=== PATIENT | male | born 1980 | race Native Hawaiian/Other Pacific Islander ===

== ENCOUNTER 2018-12-20 07:39 | Emergency (ER) | payer OTHER ==
[2018-12-20 08:10] LABS: Basophils # (Auto) 0.1 K/mm3 (0.0-0.1); Basophils % (Auto) 0.4 % (0.0-1.8); Eosinophils # (Auto) 0.1 K/mm3 (0.0-0.4); Eosinophils % (Auto) 0.4 % (0.0-4.3); Hematocrit 46.2 % (35.5-45.6); Hemoglobin 15.5 gm/dl (11.8-15.2); Lymphocytes # (Auto) 1.5 K/mm3 (1.2-5.4); Lymphocytes % (Auto) 8.8 % (13.4-35.0); Mean Corpuscular HGB Conc 34 % (32-34); Mean Corpuscular Volume 89 fl (84-94); Monocytes # (Auto) 1.2 K/mm3 (0.0-0.8); Monocytes % (Auto) 7.4 % (0.0-7.3); Platelet Count 299 K/mm3 (140-440); Red Blood Count 5.21 M/mm3 (3.65-5.03); Red Cell Distribution Width 13.8 % (13.2-15.2)
[2018-12-20] MEDS ORDERED: SODIUM CHLORIDE 0.9% 1000 ML 1,000 ML IV ONE ×2 (08:13→10:46)
[2018-12-20] MEDS ORDERED: ONDANSETRON 4 MG/2 ML INJ IV ONE (08:14)
--- NOTE | 2018-12-20 08:16 | Emergency Department Report ---
ED Abdominal Pain HPI - General Chief Complaint: Abdominal Pain Stated Complaint: NAUSEA/VOMITING Time Seen by Provider: 12/20/18 08:13 Source: patient Mode of arrival: Ambulatory Limitations: No Limitations - History of Present Illness Initial Comments: 38 YO MALE PRESENTS TO ER WITH ABD PAIN. DESCRIBED DIFFUSE ASSOCIATED WITH VOMITING. TENDER ON EXAM- DIFFUSELY. NO FEVER. NO CHILLS. 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 DENIES BACK PAIN, HEMATURIA OR DIFFICULTY URINATING MD Complaint: abdominal pain -: Sudden Location: RUQ Migration to: no migration Improves With: nothing Worsens With: nothing Associated Symptoms: nausea - Related Data Previous Rx's Medication Instructions Recorded Last Taken Type Ciprofloxacin HCl [Ciprofloxacin 500 mg PO Q12HR #20 tab 12/20/18 Unknown Rx TAB] Ibuprofen [Motrin] 800 mg PO Q8HR PRN #30 tablet 12/20/18 Unknown Rx Ondansetron [Zofran Odt] 4 mg PO Q8HR PRN #10 tab.rapdis 12/20/18 Unknown Rx Tamsulosin [Flomax] 0.4 mg PO QDAY #10 cap 12/20/18 Unknown Rx Allergies Allergy/AdvReac Type Severity Reaction Status Date / Time No Known Allergies Allergy Verified 01/22/16 13:29 ED Review of Systems ROS: Stated complaint: NAUSEA/VOMITING Other details as noted in HPI Comment: All other systems reviewed and negative ED Past Medical Hx - Past Medical History Previous Medical History?: Yes Hx Hypertension: Yes Hx CVA: No Hx Heart Attack/AMI: No Hx Congestive Heart Failure: No Hx Diabetes: No Hx Deep Vein Thrombosis: No Hx Pulmonary Embolism: No Hx GERD: No Hx Liver Disease: No Hx Renal Disease: No Hx of Cancer: No Hx Sickle Cell Disease: No Hx Arthritis: No Hx Headaches / Migraines: No Hx Seizures: No Hx Kidney Stones: Yes Hx Psychiatric Treatment: No Hx Asthma: No Hx COPD: No Hx Tuberculosis: No Hx Dementia: No Hx HIV: No - Surgical History Past Surgical History?: Yes Additional Surgical History: RIGHT EYE - Family History Family history: no significant - Social History Smoking Status: Never Smoker Substance Use Type: None - Medications Home Medications: Home Medications Medication Instructions Recorded Confirmed Last Taken Type Ciprofloxacin HCl [Ciprofloxacin 500 mg PO Q12HR #20 tab 12/20/18 Unknown Rx TAB] Ibuprofen [Motrin] 800 mg PO Q8HR PRN #30 tablet 12/20/18 Unknown Rx Ondansetron [Zofran Odt] 4 mg PO Q8HR PRN #10 tab.rapdis 12/20/18 Unknown Rx Tamsulosin [Flomax] 0.4 mg PO QDAY #10 cap 12/20/18 Unknown Rx ED Physical Exam - General Limitations: No Limitations General appearance: alert, in no apparent distress - Head Head exam: Present: atraumatic, normocephalic - Eye Eye exam: Present: normal appearance - ENT ENT exam: Present: mucous membranes moist - Neck Neck exam: Present: normal inspection - Respiratory Respiratory exam: Present: normal lung sounds bilaterally. Absent: respiratory distress - Cardiovascular Cardiovascular Exam: Present: regular rate, normal rhythm. Absent: systolic murmur, diastolic murmur, rubs, gallop - GI/Abdominal GI/Abdominal exam: Present: soft, tenderness, normal bowel sounds - Rectal Rectal exam: Present: deferred - Extremities Exam Extremities exam: Present: normal inspection - Back Exam Back exam: Present: normal inspection - Neurological Exam Neurological exam: Present: alert, oriented X3 - Psychiatric Psychiatric exam: Present: normal affect, normal mood - Skin Skin exam: Present: warm, dry, intact, normal color. Absent: rash ED Course Vital Signs 12/20/18 12/20/18 12/20/18 07:46 08:48 08:49 Temperature 98.6 F 98.4 F Pulse Rate 80 Respiratory 18 18 Rate Blood Pressure 180/93 O2 Sat by Pulse 100 97 100 Oximetry 12/20/18 12/20/18 12/20/18 09:00 09:16 09:30 Temperature Pulse Rate Respiratory Rate Blood Pressure 135/93 135/93 127/90 O2 Sat by Pulse 95 96 97 Oximetry 12/20/18 09:46 Temperature Pulse Rate Respiratory Rate Blood Pressure 127/90 O2 Sat by Pulse 97 Oximetry - Reevaluation(s) Reevaluation #1: 12/20/18 11:36 ON REEXAM PT REPORTS DEC IN PAIN AND IS ON PHONE TALKING VSS ED Medical Decision Making - Lab Data Result diagrams: 12/20/18 07:55 12/20/18 07:55 - Radiology Data Radiology results: report reviewed, image reviewed - Medical Decision Making Labs 12/20/18 12/20/18 12/20/18 07:55 07:55 08:47 WBC 16.6 H RBC 5.21 H Hgb 15.5 H Hct 46.2 H MCV 89 MCH 30 MCHC 34 RDW 13.8 Plt Count 299 Lymph % (Auto) 8.8 L [place] % (Auto) 7.4 H Eos % (Auto) 0.4 Baso % (Auto) 0.4 Lymph # 1.5 [place] # 1.2 H Eos # 0.1 Baso # 0.1 Seg Neutrophils % 83.0 H Seg Neutrophils # 13.7 H Sodium 140 Potassium 4.0 Chloride 101.5 Carbon Dioxide 21 L Anion Gap 22 BUN 10 Creatinine 1.0 Estimated GFR > 60 BUN/Creatinine Ratio 10 Glucose 105 H Calcium 9.3 Total Bilirubin 0.30 AST 19 ALT 16 Alkaline Phosphatase 77 Total Protein 8.0 Albumin 4.4 Albumin/Globulin Ratio 1.2 Lipase 75 H Urine Color [place] Urine Turbidity Slightly-cloudy Urine pH 5.0 Ur Specific [place] 1.033 H Urine Protein 100 mg/dl Urine Glucose (UA) Neg Urine Ketones Tr Urine Blood Neg Urine Nitrite Neg Urine Bilirubin Neg Urine Urobilinogen 2.0 Ur Leukocyte Esterase Neg Urine WBC (Auto) 4.0 Urine RBC (Auto) 13.0 U Epithel Cells (Auto) 3.0 Urine Bacteria (Auto) 1+ Calcium Oxalate Crystal 1+ Urine Mucus 3+ Vital Signs 12/20/18 12/20/18 12/20/18 07:46 08:48 08:49 Temperature 98.6 F 98.4 F Pulse Rate 80 Respiratory 18 18 Rate Blood Pressure 180/93 O2 Sat by Pulse 100 97 100 Oximetry 12/20/18 12/20/18 12/20/18 09:00 09:16 09:30 Temperature Pulse Rate Respiratory Rate Blood Pressure 135/93 135/93 127/90 O2 Sat by Pulse 95 96 97 Oximetry 12/20/18 09:46 Temperature Pulse Rate Respiratory Rate Blood Pressure 127/90 O2 Sat by Pulse 97 Oximetry LABS NOTED UA NOTED CT NOTED NS 2L MEDICATED FOR PAIN AND NAUSEA ROCEPHIN IV PT EDUCATED ON KIDNEY STONE AND PLAN OF CARE HYDRO IS NO LONGER SEEN. WBC INC BUT UA WITHOUT LEUK/NITRATES. UA WITH 4WBC. PT VERBALIZES UNDERSTANDING OF NEED TO FOLLOW UP WITH URO. WILL DC HOME WITH RX/STRAINER AND REFERRAL TO [facility]. - Differential Diagnosis RO PANCREATITIS/CHOLEY/GASTRITIS/K STONE Critical care attestation.: If time is entered above; I have spent that time in minutes in the direct care of this critically ill patient, excluding procedure time. ED Disposition Clinical Impression: Kidney stone on right side Disposition: DC- TO HOME OR SELFCARE Is pt being admited?: No Does the pt Need Aspirin: No Condition: Stable Instructions: Kidney Stones (ED) Additional Instructions: MEDS ORDERED TODAY FOLLOW UP WITH DR MATA OR UROLOGY MD RAYMONDP YOU HAVE THE SAME PROBLEMATIC STONE BEFORE AND NEED OUTPATIENT TREATMENT DIET AND ACTIVITY TOLERATED HYDRATE WITH A LOT OF WATER STRAIN URINE PCP REFERRAL ALSO GIVEN BELOW Prescriptions: Ciprofloxacin HCl [Ciprofloxacin TAB] 500 mg PO Q12HR #20 tab Tamsulosin [Flomax] 0.4 mg PO QDAY #10 cap Ibuprofen [Motrin] 800 mg PO Q8HR PRN #30 tablet PRN Reason: Pain, Moderate (4-6) Ondansetron [Zofran Odt] 4 mg PO Q8HR PRN #10 tab.rapdis PRN Reason: Vomiting Referrals: FINA MATA MD [Staff Physician] - 3-5 Days Time of Disposition: 11:23
[2018-12-20] MEDS ORDERED: ALUM-MAG HYDROXIDE-SIMETHICONE 200-200-20MG/5ML ORAL LIQD 30 ML PO ONE (08:25)
[2018-12-20] MEDS ORDERED: FAMOTIDINE 20 MG TAB PO ONE (08:25)
[2018-12-20 08:32] LABS: Alanine Aminotransferase 16 units/L (7-56); Albumin 4.4 g/dL (3.9-5); BUN/Creatinine Ratio 10; Blood Urea Nitrogen 10 mg/dL (9-20); Calcium 9.3 mg/dL (8.4-10.2); Hemolysis Index 6
[2018-12-20 09:21] LABS: Bacteria,Urine 1+ /HPF (Negative); Bilirubin,Urine NEG (Negative); Blood,Urine NEG (Negative); Calcium Oxalate Crystals,Urine 1+; Color,Urine Amber (Yellow); Mucus,Urine 3+ /HPF
--- NOTE | 2018-12-20 10:35 | Cat Scan Report ---
CT ABDOMEN AND PELVIS WITHOUT CONTRAST HISTORY: Abdominal pain COMPARISON: 12/09/2017 TECHNIQUE: Axial CT images were obtained through the abdomen and pelvis without IV contrast. Sagittal and coronal reformatted images. All CT scans at this location are performed using CT dose reduction for ALARA by means of automated exposure control. FINDINGS: CT ABDOMEN: Lung Bases: Clear. Liver: No significant abnormality. Biliary: No significant abnormality. Spleen: No significant abnormality. Unenlarged. Pancreas: No significant abnormality. Adrenals: No significant abnormality. Kidneys: The left kidney and collecting system are unremarkable. 2.6 cm cyst with focal wall calcific ation in the mid right kidney is unchanged. Right hydronephrosis has resolved since the previous exam . There is a persistent 7 mm calcification in the vicinity of the distal right ureter which is unchan ged. It is unclear if this represents a nonobstructing stone or a pelvic phlebolith. When comparing t o the previous study, this appears to represent the same distal right ureteral stone. Lymphatics: No lymphadenopathy. Vasculature: No significant abnormality. Bowel/Peritoneum: No significant abnormality. No free air. No free fluid. The appendix is slightly pr ominent and located medial to the cecum measuring 8.6 mm. There are no convincing inflammatory change s. Gas is identified within the appendix. CT PELVIS: : No significant abnormality. Osseous Structures: No significant abnormality. Additional Findings: None IMPRESSION: 7 mm calcification in the right pelvis as described. This appears to represent the same distal right ureteral stone noted on the previous examination. Right hydronephrosis has resolved. Please correlate with the patient. Slightly prominent appendix but no acute inflammatory changes. Signer Name: Tommie Siddiqi Jr, MD Signed: 12/20/2018 10:31 AM Workstation Name: [id number]
[2018-12-20] MEDS ORDERED: MORPHINE 2 MG/1 ML INJ IV ONE (10:46)
[2018-12-20] MEDS ORDERED: cefTRIAXone/NS 1 GM/50 ML 1 GM/50 ML BAG IV ONE (11:09)
[2018-12-20] MEDS ORDERED: KETOROLAC 30 MG/1 ML INJ IV ONE (11:23)
[2018-12-20 13:16] VITALS: BP 142/80
== END 2018-12-20 13:28 | disposition home or self-care (01) ==
LOC: ED 07:39
DX: N20.0 Calculus of kidney (principal); R11.2 Nausea with vomiting, unspecified; I10 Essential (primary) hypertension; Z79.1 Long term (current) use of non-steroidal anti-inflammatories (NSAID); Z79.899 Other long term (current) drug therapy
CPT/HCPCS: 36415; 74176; 80053; 81001; 83690; 85025; 87086; 96361; 96365; 96375; 99284; J0696; J1885; J2270; J2405; J7030

== ENCOUNTER 2018-12-23 16:38 | Emergency (ER) | payer OTHER | END 2018-12-23 18:00 | disposition left against medical advice (07) | LOC: ED 16:38 | DX: R51 Headache (principal); Z53.21 Procedure and treatment not carried out due to patient leaving prior to being seen by health care provider ==

== ENCOUNTER 2019-02-23 10:41 | Emergency (ER) | payer SELFPAY ==
[2019-02-23 11:56] LABS: Bilirubin,Urine NEG (Negative); Blood,Urine NEG (Negative); Color,Urine Yellow (Yellow); Mucus,Urine FEW /HPF; Protein,Urine <15 mg/dL mg/dL (Negative); Urobilinogen,Urine < 2.0 mg/dL (<2.0)
[2019-02-23 12:36] LABS: Basophils # (Auto) 0.1 K/mm3 (0.0-0.1); Basophils % (Auto) 0.4 % (0.0-1.8); Hematocrit 43.3 % (35.5-45.6); Hemoglobin 14.6 gm/dl (11.8-15.2); Lymphocytes # (Auto) 1.3 K/mm3 (1.2-5.4); Lymphocytes % (Auto) 10.4 % (13.4-35.0); Mean Corpuscular HGB Conc 34 % (32-34); Mean Corpuscular Volume 88 fl (84-94); Monocytes # (Auto) 1.1 K/mm3 (0.0-0.8); Platelet Count 291 K/mm3 (140-440); Red Blood Count 4.93 M/mm3 (3.65-5.03); Red Cell Distribution Width 13.7 % (13.2-15.2)
[2019-02-23 12:51] LABS: Albumin 4.1 g/dL (3.9-5); Calcium 8.9 mg/dL (8.4-10.2)
[2019-02-23] MEDS ORDERED: KETOROLAC 30 MG/1 ML INJ IV ONE (12:51)
[2019-02-23] MEDS ORDERED: ONDANSETRON 4 MG/2 ML INJ IV ONE (12:51)
[2019-02-23] MEDS ORDERED: SODIUM CHLORIDE 0.9% 1000 ML 1,000 ML IV ONE (12:51)
--- NOTE | 2019-02-23 14:08 | Cat Scan Report ---
CT ABDOMEN AND PELVIS WITHOUT CONTRAST INDICATION / CLINICAL INFORMATION: right flank pain. TECHNIQUE: Axial CT images were obtained through the abdomen and pelvis without IV contrast. All CT scans at [facility] location are performed using CT dose reduction for ALARA by means of automated exposure control. COMPARISON: CT dated 12/20/18 FINDINGS: LOWER CHEST: No significant abnormality. LIVER: No significant abnormality. GALLBLADDER: No significant abnormality. BILE DUCTS: No significant abnormality. PANCREAS: No significant abnormality. SPLEEN: No significant abnormality. ADRENALS: No significant abnormality. RIGHT KIDNEY and URETER: 5.5 mm stone at the right ureterovesical junction protruding slightly into t he urinary bladder. Moderate right hydroureteronephrosis. Moderate perinephric and periureteral stran ding. Right renal cyst is unchanged. LEFT KIDNEY and URETER: No stones or hydronephrosis. No acute findings. STOMACH and SMALL BOWEL: No significant abnormality. COLON: No significant abnormality. APPENDIX: No significant abnormality. PERITONEUM: No free fluid. No free air. No fluid collection. LYMPH NODES: No significant adenopathy. AORTA and ARTERIES: No significant abnormality. IVC and VEINS: No significant abnormality. URINARY BLADDER: Mild bladder wall thickening. REPRODUCTIVE ORGANS: No significant abnormality. ADDITIONAL FINDINGS: None. SKELETAL SYSTEM: No significant abnormality. IMPRESSION: 1. 5.5 mm stone at the right ureterovesical junction with moderate right hydroureteronephrosis. Signer Name: Adán Boyce MD Signed: 02/23/2019 2:04 PM Workstation Name: [id number]
--- NOTE | 2019-02-23 14:23 | Emergency Department Report ---
ED Abdominal Pain HPI - General Chief Complaint: Abdominal Pain Stated Complaint: POSSIBLE KIDNEY STONES Source: patient Mode of arrival: Ambulatory Limitations: No Limitations - History of Present Illness Initial Comments: This is a 38-year-old male came to the emergency room complaining of right flank pain associated with nausea sometimes vomiting. Patient's the onset of this right flank pain with 11 hours ago he reports a history of kidney stones and that he was. Follow-up with urologist but has not he was last seen in this emergency room on 12/20/2018. Patient denies fever he does report decreased appetite he. He denies any difficulty urinating. Patient denies chest pain and shortness of breath MD Complaint: flank pain -: Gradual (12 hrs ago), Sudden Location: R flank Radiation: RUQ Severity: moderate Severity scale (0 -10): 4 Quality: aching Consistency: intermittent Improves With: nothing Worsens With: nothing Associated Symptoms: nausea. denies: diarrhea, fever, constipation, dysuria - Related Data Previous Rx's Medication Instructions Recorded Last Taken Type Ciprofloxacin HCl [Ciprofloxacin 500 mg PO Q12HR #20 tab 12/20/18 Unknown Rx TAB] Ibuprofen [Motrin] 800 mg PO Q8HR PRN #30 tablet 12/20/18 Unknown Rx Ondansetron [Zofran Odt] 4 mg PO Q8HR PRN #10 tab.rapdis 12/20/18 Unknown Rx Tamsulosin [Flomax] 0.4 mg PO QDAY #10 cap 12/20/18 Unknown Rx HYDROcodone/APAP 5-325 [[place] 1 each PO Q6HR PRN #15 tablet 02/23/19 Unknown Rx 5/325] Ondansetron [Zofran ODT TAB] 8 mg PO Q12HR PRN #8 tab.rapdis 02/23/19 Unknown Rx Tamsulosin [Flomax] 0.4 mg PO QDAY #7 cap 02/23/19 Unknown Rx Allergies Allergy/AdvReac Type Severity Reaction Status Date / Time No Known Allergies Allergy Verified 01/22/16 13:29 ED Review of Systems ROS: Stated complaint: POSSIBLE KIDNEY STONES Other details as noted in HPI Comment: All other systems reviewed and negative Constitutional: denies: chills, fever ENT: denies: ear pain, throat pain Respiratory: denies: cough Cardiovascular: denies: chest pain, palpitations Gastrointestinal: abdominal pain, nausea, other (right flank pain ). denies: diarrhea, constipation ED Past Medical Hx - Past Medical History Previous Medical History?: Yes Hx Hypertension: Yes Hx CVA: No Hx Heart Attack/AMI: No Hx Congestive Heart Failure: No Hx Diabetes: No Hx Deep Vein Thrombosis: No Hx Pulmonary Embolism: No Hx GERD: No Hx Liver Disease: No Hx Renal Disease: No Hx Sickle Cell Disease: No Hx Arthritis: No Hx Headaches / Migraines: No Hx Seizures: No Hx Kidney Stones: Yes Hx Psychiatric Treatment: No Hx Asthma: No Hx COPD: No Hx Tuberculosis: No Hx Dementia: No Hx HIV: No - Surgical History Past Surgical History?: Yes Additional Surgical History: RIGHT EYE - Social History Smoking Status: Never Smoker Substance Use Type: Alcohol - Medications Home Medications: Home Medications Medication Instructions Recorded Confirmed Last Taken Type Ciprofloxacin HCl [Ciprofloxacin 500 mg PO Q12HR #20 tab 12/20/18 Unknown Rx TAB] Ibuprofen [Motrin] 800 mg PO Q8HR PRN #30 tablet 12/20/18 Unknown Rx Ondansetron [Zofran Odt] 4 mg PO Q8HR PRN #10 tab.rapdis 12/20/18 Unknown Rx Tamsulosin [Flomax] 0.4 mg PO QDAY #10 cap 12/20/18 Unknown Rx HYDROcodone/APAP 5-325 [[place] 1 each PO Q6HR PRN #15 tablet 02/23/19 Unknown Rx 5/325] Ondansetron [Zofran ODT TAB] 8 mg PO Q12HR PRN #8 tab.rapdis 02/23/19 Unknown Rx Tamsulosin [Flomax] 0.4 mg PO QDAY #7 cap 02/23/19 Unknown Rx ED Physical Exam - General Limitations: No Limitations General appearance: alert, in no apparent distress - Head Head exam: Present: atraumatic - Eye Eye exam: Present: normal appearance. Absent: scleral icterus, conjunctival injection - ENT ENT exam: Present: normal exam, mucous membranes moist - Neck Neck exam: Present: normal inspection, full ROM. Absent: lymphadenopathy - Respiratory Respiratory exam: Present: normal lung sounds bilaterally. Absent: respiratory distress, wheezes, stridor - Cardiovascular Cardiovascular Exam: Present: regular rate, normal heart sounds - GI/Abdominal GI/Abdominal exam: Present: soft, normal bowel sounds. Absent: distended, tenderness, guarding, rebound, rigid - Extremities Exam Extremities exam: Present: normal inspection, normal capillary refill - Back Exam Back exam: Present: normal inspection, CVA tenderness (R). Absent: CVA tenderness (L), paraspinal tenderness - Neurological Exam Neurological exam: Present: alert, oriented X3 - Psychiatric Psychiatric exam: Present: normal affect - Skin Skin exam: Present: warm, dry, intact, normal color ED Course Vital Signs 02/23/19 02/23/19 02/23/19 10:53 12:56 13:26 Temperature 98.4 F Pulse Rate 85 Respiratory 18 18 18 Rate Blood Pressure 173/93 O2 Sat by Pulse 96 Oximetry ED Medical Decision Making - Lab Data Result diagrams: 02/23/19 12:18 02/23/19 12:18 - Radiology Data Radiology results: report reviewed CT abd/pelvis IMPRESSION: 1. 5.5 mm stone at the right ureterovesical junction with moderate right hydr oureteronephrosis. - Medical Decision Making IMPRESSION: 1. 5.5 mm stone at the right ureterovesical junction with moderate right hydroureteronephrosis. Critical Care Time: No Critical care attestation.: If time is entered above; I have spent that time in minutes in the direct care of this critically ill patient, excluding procedure time. ED Disposition Clinical Impression: Kidney stone on right side Disposition: -01 TO HOME OR SELFCARE Is pt being admited?: No Does the pt Need Aspirin: No Condition: Stable Instructions: Kidney Stones (ED) Additional Instructions: Drink plenty fluids take medication as directed. Follow up with urologist in 3-5 days Return for fever or worsening pain Prescriptions: Tamsulosin [Flomax] 0.4 mg PO QDAY #7 cap HYDROcodone/APAP 5-325 [[place] 5/325] 1 each PO Q6HR PRN #15 tablet PRN Reason: Pain Ondansetron [Zofran ODT TAB] 8 mg PO Q12HR PRN #8 tab.rapdis PRN Reason: Vomiting Referrals: PRIMARY CARE, [Primary Care Provider] - 3-5 Days FINA MATA MD [Staff Physician] - 3-5 Days Time of Disposition: 14:40
[2019-02-23] MEDS ORDERED: HYDROcodone/ACETAMINOPHEN 7.5-325MG TAB PO ONE (14:37)
[2019-02-23 15:00] VITALS: BP 170/84
== END 2019-02-23 14:55 | disposition home or self-care (01) ==
LOC: ED 10:41
DX: N20.0 Calculus of kidney (principal); R11.2 Nausea with vomiting, unspecified; I10 Essential (primary) hypertension; F10.10 Alcohol abuse, uncomplicated; Z87.442 Personal history of urinary calculi; Z79.899 Other long term (current) drug therapy
CPT/HCPCS: 36415; 74176; 80053; 81001; 83690; 85025; 96361; 96374; 96375; 99284; J1885; J2405; J7030